=== PATIENT | male | born 1965 | race Two or more races ===

== ENCOUNTER 2019-06-11 02:18 | Emergency (ER) | payer SELFPAY ==
[~2019-06-11] VITALS: Ht 175.3 cm; Wt 70.8 kg
--- NOTE | 2019-06-11 02:35 | NUR ---
PATIENT BIB [facility] C/O BEING FOUND SLEEPING IN FRONT OF SOMEONE'S FRONT YARD. PATIENT UNABLE TO ANSWER QUESTIONS. PATIENT SMELLS OF ETOH AND URINE. ALERT AND AWAKE, REACTS TO VERBAL AND TACTILE STIMULI. GIVEN 4L N/C. CONNECTED TO MONITOR.
--- NOTE | 2019-06-11 03:09 | NUR ---
PATIENT SENT TO CT
--- NOTE | 2019-06-11 03:22 | NUR ---
RETURNED FROM CT
--- NOTE | 2019-06-11 07:24 | NUR ---
endorsement received from geri snyder for [facility]
--- NOTE | 2019-06-11 07:29 | NUR ---
PATIENT IS SLEEPING. EASILY AROUSABLE THROUGH TACTILE AND VERBAL STIMULI. BREATHING EVENLY AND UNLABORED ON ROOM AIR. CONNECTED TO MONITOR. SIDE RAILS UP FOR SAFETY. SITTER AT BEDSIDE.
--- NOTE | 2019-06-11 07:42 | NUR ---
Patient awake, ambulatory with steady gait, md aware, patient would like to be discharged
--- NOTE | 2019-06-11 07:56 | NUR ---
information given to admitting to update information, afterwards, patient left facility. does not want to wait for discharge paper. md foley
--- NOTE | 2019-06-11 07:59 | NUR ---
patient left facility, ambulatory w steady gait, in proper clothing upon leaving facility, name band removed.
[2019-06-11 08:05] VITALS: BP 142/81
== END 2019-06-11 08:01 | disposition home or self-care (01) ==
LOC: EDBD 02:20 → ER 02:20
DX: F10.129 Alcohol abuse with intoxication, unspecified (principal); Y90.8 Blood alcohol level of 240 mg/100 ml or more; R41.82 Altered mental status, unspecified
CPT/HCPCS: 36415; 70450-TC; 82962-TC; G0480